=== PATIENT | male | born 1950 | race African-American/Black ===

== ENCOUNTER 2019-07-06 12:45 | Emergency (ER) | payer MEDICARE, MEDICAID ==
[~2019-07-06] VITALS: Ht 182.9 cm; Wt 86.0 kg
[~2019-07-06 12:45] MED LIST: DIAZ2TAB; HYDR-3927
[2019-07-06 13:24] LABS: BASOPHILS % 0.8 % (0.0-2.0); HEMOGLOBIN. 13.8 g/dL (14.0-18.0); LYMPHOCYTES % 18.2 % (20.0-50.0); MEAN CORPUSCULAR HEMOGLOBIN 32.3 pg (28.0-32.0); MEAN CORPUSCULAR VOLUME 96.1 fL (80.0-94.0); MEAN PLATELET VOLUME 7.1 fl (7.4-10.4); MONOCYTES % 9.5 % (2.0-8.0); NEUTROPHILS % 70.5 % (40.0-76.0); PLATELET 199 x1000/uL (130-400); RED BLOOD CELL COUNT 4.26 mill/uL (4.7-6.1); RED CELL DISTRIBUTION WIDTH 16.4 % (11.6-14.6)
[2019-07-06 13:29] LABS: CHLORIDE 110 mEq/L (98-107)
[2019-07-06 13:32] LABS: ETHANOL BLOOD 276 mg/dL
[2019-07-07] MEDS ORDERED: CHLORDIAZEPOXIDE 5 MG CAPSULE PO ONE (00:15)
[2019-07-07 14:50] VITALS: BP 152/95
== END 2019-07-07 14:55 | disposition home or self-care (01) ==
LOC: ER 12:45
DX: F10.129 Alcohol abuse with intoxication, unspecified (principal); F17.290 Nicotine dependence, other tobacco product, uncomplicated; R41.82 Altered mental status, unspecified
CPT/HCPCS: 36415; 80053; 80320; 85025; 99285; G0480